=== PATIENT | male | born 1930 | race Caucasian/White ===

== ENCOUNTER 2018-06-20 12:00 | Emergency (ER) | payer OTHER ==
[~2018-06-20] VITALS: Ht 172.7 cm; Wt 81.8 kg
[~2018-06-20 12:00] MED LIST: BRIM15OS OP; CARV3.1262 PO; CILO50TA PO; CLOP75TA14 PO; DICL1OS OP; DONE5TAB26 PO; FURO-151 PO; GLIP5TAB3 PO; LISI2.5T2 PO; METF500T PO; PRAV10TA39 PO; WARF4TAB41 PO; [UNRECOGNIZED DRUG - CODE] OP
[2018-06-20] MEDS ORDERED: ISOS30TA6 PO (12:23)
[2018-06-20] MEDS ORDERED: VITAD1000 PO (12:23)
[2018-06-20] MEDS ORDERED: ATOR20TA86 PO (12:23)
[2018-06-20 12:24] LABS: GLUCOSE,POINT OF CARE 105 MG/DL (70-110)
[2018-06-20 12:30] VITALS: BP 119/66
== END 2018-06-20 12:30 | disposition home or self-care (01) ==
LOC: EMS 12:01
DX: I42.9 Cardiomyopathy, unspecified (principal); R19.7 Diarrhea, unspecified; E11.9 Type 2 diabetes mellitus without complications; I10 Essential (primary) hypertension; Z95.0 Presence of cardiac pacemaker; Z79.899 Other long term (current) drug therapy; Z79.84 Long term (current) use of oral hypoglycemic drugs; Z79.01 Long term (current) use of anticoagulants